=== PATIENT | female | born 1980 | race Caucasian/White ===

== ENCOUNTER 2016-08-10 19:23 | Emergency (ER) | payer MEDICAID | END 2016-08-10 21:19 | disposition home or self-care (01) | LOC: D.ER 19:23 | DX: M54.5 Low back pain (principal); M54.16 Radiculopathy, lumbar region ==

== ENCOUNTER 2020-02-29 22:26 | Emergency (ER) | payer MEDICAID ==
[~2020-02-29] VITALS: Ht 160 cm; Wt 50.0 kg
[2020-02-29 22:38] VITALS: BP 123/75; Ht 160 cm; Wt 50.0 kg
[2020-03-01] MEDS ORDERED: CYCLOBENZAPRINE10 MG PO (00:04)
[2020-03-01] MEDS ORDERED: DICLOFENAC SODI50 MG PO (00:04)
== END 2020-03-01 00:31 | disposition home or self-care (01) ==
LOC: D.ER 22:26
DX: R10.30 Lower abdominal pain, unspecified (principal); T76.21XA Adult sexual abuse, suspected, initial encounter

== ENCOUNTER 2020-04-10 17:38 | Emergency (ER) | payer MEDICAID ==
[~2020-04-10] VITALS: Ht 160 cm; Wt 50.0 kg
[~2020-04-10 17:38] MED LIST: CYCLOBENZAPRINE10 MG PO; DICLOFENAC SODI50 MG PO
[2020-04-10 17:43] VITALS: Ht 160 cm; Wt 50.0 kg
[2020-04-10] MEDS ORDERED: VOLTAREN75 MG PO (19:25)
[2020-04-10] MEDS ORDERED: CLEOCIN HCL300 MG PO (19:25)
[2020-04-10 20:05] VITALS: BP 131/75
== END 2020-04-10 20:45 | disposition home or self-care (01) ==
LOC: D.ER 17:38
DX: L03.115 Cellulitis of right lower limb (principal); M79.604 Pain in right leg